=== PATIENT | female | born 1965 | race Asian ===

== ENCOUNTER 2023-11-10 15:43 | Emergency (ER) | payer SELFPAY ==
[~2023-11-10] VITALS: Ht 165.1 cm; Wt 61.2 kg
[2023-11-10] MEDS ORDERED: KETOROLAC TROMETHAMINE 30 MG INJ ONE (16:09)
[2023-11-10 16:12] LABS: BASOPHILS % (AUTO) 0.8 % (0.0-2.0); EOSINOPHILS # (AUTO) 0.2 K/uL (0.0-0.7); HEMATOCRIT 39.6 % (31.2-41.9); HEMOGLOBIN 13.3 g/dL (10.9-14.3); LYMPHOCYTES # (AUTO) 1.5 K/uL (0.8-4.8); LYMPHOCYTES % (AUTO) 26.9 % (20.5-51.5); MEAN CORPUSCULAR HEMOGLOBIN 30.8 uug (24.7-32.8); MEAN CORPUSCULAR HGB CONC 34 g/dL (32.3-35.6); MEAN CORPUSCULAR VOLUME 91.9 fL (75.5-95.3); MONOCYTES # (AUTO) 0.3 K/uL (0.1-1.30); MONOCYTES % (AUTO) 4.5 % (0.0-11.0); NEUTROPHILS # (AUTO) 3.6 K/uL (1.8-8.9); NEUTROPHILS % (AUTO) 63.8 % (38.5-71.5); PLATELET COUNT (AUTO) 258 K/uL (179-408); RED BLOOD CELL COUNT(AUTO) 4.31 MIL/uL (3.63-4.92); RED CELL DISTRIBUTION WIDTH 12.9 % (12.3-17.7); WHITE BLOOD COUNT (AUTO) 5.7 K/uL (3.8-11.8)
[2023-11-10] MEDS: IV NORMAL SALINE 1000 ML BAG IV ONE (16:12)
[2023-11-10] MEDS: KETOROLAC TROMETHAMINE 30 MG INJ IVP ONE (16:14)
[2023-11-10 16:15] LABS: DIFFERENTIAL COMMENT 1
[2023-11-10 16:20] LABS: CALCIUM 9.2 mg/dL (8.5-10.1); CREATININE 0.7 mg/dL (0.6-1.3); POTASSIUM 3.4 mmol/L (3.5-5.1)
[2023-11-10 16:25] LABS: ALBUMIN 3.9 g/dL (3.4-5.0); BILIRUBIN,DIRECT 0.1 mg/dL (0.0-0.2); BILIRUBIN,TOTAL 0.6 mg/dL (0.2-1.0); TOTAL PROTEIN, SERUM 7.2 g/dL (6.4-8.2)
[2023-11-10] MEDS ORDERED: MORPHINE SULFATE 4 MG/1 ML DISP.SYRIN ONE (17:31)
[2023-11-10] MEDS: MORPHINE SULFATE 4 MG/1 ML DISP.SYRIN IV ONE (17:32)
[2023-11-10] MEDS ORDERED: MORPHINE SULFATE 2 MG/1 ML DISP.SYRIN ONE (17:32)
[2023-11-10 17:48] VITALS: BP 131/74; TEMP 98.1; O2SAT 99
[2023-11-10] MEDS ORDERED: TAMS-3 PO (17:54)
[2023-11-10] MEDS ORDERED: OXYC-133 PO (17:54)
[2023-11-10 18:03] LABS: *BILIRUBIN,URIN NEGATIVE (NEGATIVE); *CLARITY,URINE CLEAR (CLEAR); *COLOR,URINE YELLOW (YELLOW); *KETONES,URINE TRACE (NEGATIVE); *PROTEIN,URINE NEGATIVE (NEGATIVE); *UROBILINOGEN,URINE 0.2 E.U./dl (NORMAL); LEUKOCYTE ESTERASE ,URINE NEGATIVE (NEGATIVE); NITRITE, URINE NEGATIVE (NEGATIVE); PH,URINE 7.5 (5.0-8.0); UGLUCOSE NEGATIVE (NEGATIVE)
[2023-11-10 18:09] LABS: *BLOOD, URINE TRACE (NEGATIVE)
[2023-11-10 18:10] LABS: *URINE HCG, QUAL NEGATIVE (NEGATIVE); BACTERIA,URINE FEW /HPF (NONE SEEN); SQUAMOUS EPITHELIAL CELL,UR FEW /HPF (NONE SEEN); WBC,URINE NONE SEEN /HPF (0-3)
== END 2023-11-10 17:59 | disposition home or self-care (01) ==
LOC: ER 15:46
DX: N20.1 Calculus of ureter (principal); R10.2 Pelvic and perineal pain
CPT/HCPCS: 99285; 74176; 96374; 96361; 96375; 80076; 80048; 81001; 84703; 85025; 36415; J1885; J2270 ×2; J7040; A4606; A4663